=== PATIENT | male | born 1950 | race Caucasian/White ===

== ENCOUNTER 2024-04-02 11:43 | Day surgery (SDC) | payer MEDICARE ==
[2024-04-02 09:28] LABS: Absolute Eosinophils 0.1 K/uL (0-0.5); Absolute Lymphocytes (CBC) 1.6 K/uL (0.7-4.9); Absolute Monocytes 0.5 K/uL (0.1-1.3); Absolute Neutrophil 3.9 K/uL (1.8-8.0); Basophils % 0.4 % (0-1.3); Eosinophils % 2.4 % (0-4.4); Hematocrit 44.8 % (39.6-49.0); Hemoglobin 14.6 g/dL (13.6-17.9); Lymphocytes % 25.9 % (15.3-44.8); MCH 31.4 pg (27.0-35.0); MCHC 32.5 g/dL (32.0-36.0); MCV 96.5 fL (80-100); MPV 8.2 fL (7.6-11.3); Monocytes % 8.3 % (3.3-12.3); Platelets 230 thou/uL (152-406); RBC Red Blood Cell Count 4.64 M/uL (4.33-5.43)
[2024-04-02 09:32] LABS: PT Prothrombin Time 11.8 SECONDS (9.4-12.5); PTT, Activated Partial Thromb 38.3 SECONDS (24.3-36.9); Protime INR 1.06
[2024-04-02 09:39] LABS: Anion Gap 5.7 mEq/L (5.0-15.0); Potassium 3.7 mEq/L (3.5-5.1)
[2024-04-02] MEDS ORDERED: FENTANYL CITR 100 MCG/2 ML ONE (12:39)
[2024-04-02] MEDS ORDERED: propofoL 200 MG/20 ML VIAL IV ONE (12:39)
[2024-04-02] MEDS ORDERED: LIDOCAINE 2% MPF 5 ML VIAL ONE (12:39)
[2024-04-02] MEDS ORDERED: ONDANSETRON 4 MG/2 ML VIAL ONE ×2 (12:39→14:16)
[2024-04-02] MEDS: Ringers Lactate 1,000 ML IV ONE (12:45)
[2024-04-02] MEDS: CEFAZOLIN SODIUM 2 GM/VIAL ONE (13:53)
[2024-04-02] MEDS ORDERED: KETOROLAC 30 MG/ML INJ ONE (14:16)
[2024-04-02] MEDS: LIDOCAINE HCL/EPINEPHRINE 20 ML MDV ONE (14:27)
--- NOTE | 2024-04-02 14:45 | P.OP ---
Preoperative diagnosis: RIGHT Neck, RIGHT Tricept Skin Lesions Postoperative diagnosis: RIGHT Neck, RIGHT Tricept Skin Lesions Primary procedure: Excisional Biopsy of RIGHT Tricept Skin Lesion Secondary procedure: Shave Biopsy of RIGHT Neck Skin Lesion Anesthesia: GETA + Local Estimated blood loss: < 2cc Specimen: Skin lesions x 2 Findings: 0.9cm neck skin lesion, 1.5 x 1.0 RIGHT Tricept skin lesion Complications: None Transferred to: Recovery Room Condition: Good
[2024-04-02] MEDS: LABETALOL HCL 100 MG/20 ML ONE (15:02)
[2024-04-02 17:54] VITALS: TEMP 97.5
[2024-04-02 17:58] VITALS: BP 147/99; O2SAT 97
--- NOTE | 2024-04-03 02:33 | OP ---
Date of Procedure: 04/02/2024 Surgeon: Ronni Orellana MD, Preoperative Diagnosis: Right neck and right triceps skin lesions. Postoperative Diagnosis: Right neck and right triceps skin lesions. Procedure Performed: 1. Excisional biopsy of right triceps skin lesion. 2. Shave biopsy of right neck skin lesion. Anesthesia: General endotracheal plus local with 1% lidocaine with epinephrine. Estimated Blood Loss: <5cc cc. Specimen: Skin lesions x2. Findings: 0.9 cm round skin lesion of the right neck and 1.5 cm x 1.0 cm right triceps skin lesion into the adipose tissue. Complications: None. Disposition: The patient was transferred to recovery room in good condition. Procedure In Detail: After informed was obtained, the patient was brought to the operating room, prepped in usual sterile fashion. After adequate anesthesia achieved with 1% lidocaine with epinephrine, I performed shave biopsy of the right neck skin lesion as described above and sent for pathologic examination. The area was fulgurated using a minimal amount of electrocautery and sterile dressing over top. I then turned my attention to the right triceps area, which was prepped and draped in the usual sterile fashion. I once again placed 1% lidocaine with epinephrine in this area. An elliptical incision of 1.5 cm x 1.0 cm down to subcutaneous tissues, ultimately in the adipose tissue. Marking suture was placed at this point. The electrocautery was then used to remove this tissue in its entirety, sent for pathologic examination. The area was copiously irrigated and closed with interrupted 3-0 nylon sutures and sterile dressing placed over top. The patient tolerated the procedure without incident or complication. Transferred to PACU in good condition. All counts were correct at the end of the case. ABBEY/MARIA LUISA Voice ID: [id number] Report ID: [id number] VEL
== END 2024-04-02 17:25 | disposition home or self-care (01) ==
LOC: OR 11:43
PROVIDERS: ATTEND Surgery
PROC: 0HB4XZZ Excision of Neck Skin, External Approach (ICD-10-PCS; principal; 2024-04-02 14:45)
PROC: 0HBBXZZ Excision of Right Upper Arm Skin, External Approach (ICD-10-PCS; 2024-04-02 14:45)
DX: D04.4 Carcinoma in situ of skin of scalp and neck (principal); L85.8 Other specified epidermal thickening; L90.5 Scar conditions and fibrosis of skin
CPT/HCPCS: 85025; 80048; 36415; 85610; 88305; 85730; 11102; 11402; J2704; J2001; J3010; J2405; J7120